=== PATIENT | female | born 1975 | race Caucasian/White ===

== ENCOUNTER 2023-09-04 14:58 | Emergency (ER) | payer OTHER ==
[~2023-09-04] VITALS: Ht 160 cm; Wt 54.4 kg
[2023-09-04 15:06] VITALS: BP 117/75; PULSE 77; RESP 16; TEMP 98; O2SAT 99
[2023-09-04] MEDS ORDERED: OMEP40EC23 PO (15:53)
[2023-09-04 15:55] VITALS: BP 112/72; PULSE 72; O2SAT 99
== END 2023-09-04 15:55 | disposition home or self-care (01) ==
LOC: MED 14:58 → EDBD 14:58 → MED 15:55
DX: R10.13 Epigastric pain (principal); E11.9 Type 2 diabetes mellitus without complications
CPT/HCPCS: 81002; 81025; 82948; 99283